=== PATIENT | female | born 1995 | race Caucasian/White ===

== ENCOUNTER 2019-12-11 14:11 | Emergency (ER) | payer MEDICAID, SELFPAY ==
[2019-12-11 14:34] VITALS: BP 125/74; PULSE 102; RESP 18; TEMP 36.9; O2SAT 98; BMI 26.2
--- NOTE | 2019-12-11 14:43 | XR_ITS ---
PROCEDURE: XR CHEST PORTABLE CLINICAL HISTORY: cough/respiratory symptoms Cough and shortness of air COMPARISON: No exams were available for comparison FINDINGS: The cardiomediastinal silhouette and pulmonary vascularity are within normal limits. The lungs are clear without infiltrates, suspicious nodules, or pleural effusions. There is mild lower thoracic curvature convex left IMPRESSION: No acute findings. Dictated by: Logan Sánchez MD 12/11/2019 14:56 Electronically signed by Logan Sánchez MD in [facility] 12/11/2019 14:56
--- NOTE | 2019-12-11 14:52 | [facility].COUGH ---
Cough Clinic HPI - History of Present Illness Complaint:: Cough/exposure to coronavirus 19 HPI:: 24-year-old female with no significant respiratory history but who is a smoker was exposed to coronavirus a couple of weeks ago when she traveled to [place] to visit her mother who unbeknownst to her have been diagnosed with coronavirus 19. Her mother is doing well, the mother is keeping the patient's children who are in quarantine with her. Over the past week patient has noticed some shortness of air and cough. Her has had fevers as well as the patient but they have been lower and more subjective. She has had a nonproductive cough. Has had some body aches, otherwise has not been significantly debilitated, denies GI symptoms or alterations of taste or smell and denies rash. Severity: moderate Severity scale (1-10): 4 Home Medications: Home Medications Medication Instructions Recorded Confirmed Type Buspirone HCl [Buspirone 15 mg 15 mg PO BID 12/11/19 12/11/19 History Tablets] Sertraline HCl 20 mg PO DAILY 12/11/19 12/11/19 History Trazodone HCl 50 mg PO DAILY 12/11/19 12/11/19 History hydroCHLOROthiazide 12.5 mg PO DAILY 12/11/19 12/11/19 History [Hydrochlorothiazide] Allergies/Adverse Reactions: Allergies Allergy/AdvReac Type Severity Reaction Status Date / Time Penicillins [PENICILLINS] Allergy Unknown Verified 12/11/19 14:32 Cough Clinic Triage - Symptoms Fever History: Yes Chills: Yes Myalgia: Yes Nasal Drainage: No Sore Throat: No Productive Cough: No Non-productive Cough: Yes Ear or Sinus Pain: No Joint Pain: No Chest Pain: Yes Rash: No Shortness of Breath: Yes Nausea or Vomitting: No Headache: Yes Abdominal Pain: No Diarrhea: No - Exposure History Foreign Travel: Yes (to [place] 1 week ago) Direct Contact with COVID-19 Patient: Yes If YES, Who:: mother in law When:: 1 week ago Distance/Proximity to Contact:: 3-5 feet Length of Time in Direct Contact:: 2-3 hours - Risk Factors Greater than 60 Years Old: No COPD: No Diabetes: No Heart Disease: No Home Oxygen Use: No Chronic Renal Disease: No Chronic Liver Disease: No Neurologic/Neurodevelopmental/intellectual disability: No Other Chronic Diseases: No If Female, currently : No Current Smoker: Yes (1 ppd) Former Smoker: No Cough Clinic History I have reviewed the patient's past medical history: Yes ROS Obtained: Yes All systems reviewed & no additional complaints [facility] Exam - General General appearance: alert, in no apparent distress - Head Head exam: atraumatic, normocephalic, normal inspection - Eye Eye exam: Present: normal appearance, PERRL, EOMI - ENT ENT exam: Present: normal exam, normal oropharynx, mucous membranes moist, TM's normal bilaterally, normal external ear exam - Neck Neck exam: Present: normal inspection, full ROM, trachea midline. Absent: meningismus, lymphadenopathy - Chest Chest inspection: Present: normal inspection, symmetric chest wall rise. Absent: tenderness - Respiratory Respiratory exam: Present: normal lung sounds bilaterally. Absent: respiratory distress - Cardiovascular Cardiovascular exam: Present: regular rate, normal rhythm. Absent: JVD - Extremities Exam Extremities exam: Present: normal inspection, full ROM, normal capillary refill. Absent: calf tenderness - Neurological Exam Neurological exam: Present: alert, oriented X3 - Skin Skin exam: Present: warm, dry, intact, normal color - Lymphatic Lymphatic Findings: no adenopathy Cough Clinic MDM - Medical Records Medical records reviewed: Yes: I reviewed the patient's medical records. Vital Signs: 12/11/19 14:34 Temperature 98.5 F Temperature Source Oral Pulse Rate [Right Brachial] 102 H Respiratory Rate 18 Blood Pressure [Right Arm] 125/74 Blood Pressure Mean [Right Arm] 91 Blood Pressure Source [Right Arm] Automatic Cuff Blood Pressure Position [Right Arm] Supine 02 Sat by
[2019-12-11 15:01] LABS: Basophils % 0.5 % (0.1-2.0); Eosinophils # 0.2 K/mm3 (0.0-0.4); Eosinophils % 2.3 % (0.1-12.0); Hematocrit 41.1 % (37.0-47.0); Hemoglobin 13.3 g/dL (12.2-16.2); Lymphocytes # 3.4 K/mm3 (0.7-4.5); Lymphocytes % 50.1 % (10-50); Mean Corpuscular HGB Conc 32.4 g/dL (31.8-35.4); Mean Corpuscular Hemoglobin 29.5 pg (27.0-31.2); Mean Corpuscular Volume 91.2 fl (81-99); Mean Platelet Volume 7.8 fl (7.4-10.4); Monocytes # 0.3 K/mm3 (0.1-1.0); Monocytes % 4.7 % (1.7-9.3); Neutrophils # 2.9 K/mm3 (1.8-7.8); Neutrophils % 42.5 % (37.0-80.0); Platelet Count 299 K/mm3 (142-424); Red Cell Distribution Width 13.8 % (11.5-17.5); White Blood Count 6.8 K/mm3 (4.8-10.8)
[2019-12-11 15:02] LABS: MANUAL DIFFERENTIAL MANUAL DIFFERENTIAL (MANUAL DIFF)
[2019-12-11 15:15] VITALS: BP 125/74; PULSE 102; RESP 18; TEMP 36.9; O2SAT 98
[2019-12-11 18:21] LABS: Eosinophils % 4 % (0-3); Lymphocytes % 53 % (10-50); Monocytes % 4 % (2-9); Neutrophils % 39 % (42-76); Platelet Estimate Normal; RBC Morphology Normal; Total Cells Counted 100
[2019-12-12 16:17] LABS: Covid-19 Nasal PCR Sendout Lex NOT DETECTED
== END 2019-12-11 15:20 | disposition home or self-care (01) ==
PROVIDERS: Emergency Provider Internal Medicine Adolescent Medicine
DX: Z20.828 Contact with and (suspected) exposure to other viral communicable diseases (principal); F17.210 Nicotine dependence, cigarettes, uncomplicated
CPT/HCPCS: 36415; 71045; 85007; 85025; 99201; 99213; U0003